=== PATIENT | female | born 1950 | race Caucasian/White ===

== ENCOUNTER 2019-01-02 14:03 | Day surgery (SDC) | payer OTHER, SELFPAY ==
[2018-12-30 07:51] VITALS: BMI 29.0
[2019-01-02] VITALS (17 sets, daily range): BP systolic 126–188; BP diastolic 76–122; PULSE 66–100; RESP 8–18; TEMP 35.9–36.9; O2SAT 94–100; BMI 29.0
[2019-01-02] MEDS: LACTATED RINGERS 1,000 ML 42 ML IV (14:50)
--- NOTE | 2019-01-02 16:17 | PM.PREOP ---
Pre-operative Note Interval Note History & Physical reviewed/Exam performed by Physician: Yes Changes to H&P: No
--- NOTE | 2019-01-02 16:34 | SUR.OPER ---
Lithotomy on padded OR bed, head on pillow, arms secured on padded arm boards at <90 degrees abduction. Legs secured in padded yellow fins stirrups.
[2019-01-02] MEDS: CEFAZOLIN 2 GM/100 ML FROZ.PIGGY IV (17:00)
[2019-01-02] MEDS: BUPIVACAINE 0.5% W/ EPI (PF) VIAL 30 ML INJ (17:24)
--- NOTE | 2019-01-02 18:47 | PM.OP.1 ---
Operative Date/Time/Diagnoses Date of procedure: 01/02/19 Time of procedure: 18:47 Pre-op diagnosis: Symptomatic uterovaginal prolapse Post-op diagnosis: same Procedure & Clinicians Procedure: Anterior and posterior repair with sacrospinous ligament fixation and TVT exact retropubic suburethral sling Same procedure as scheduled: Yes Indications: Symptomatic uterovaginal prolapse with urinary incontinence Surgeon: Malini Ruggiero Click Yes if Unassisted: Yes Anesthesia Type: General Operative Notes Findings: Cystocele with hypermobile urethra, rectocele, minimal uterine prolapse Closure Type: primary Specimen(s): none sent Prosthetic devices, grafts, tissues, transplants, or devices: TVT exact retropubic suburethral sling mesh Applied: catheter and other (Vaginal packing) Estimated Blood Loss (mL): 50 Blood products transfused: none Procedure in detail: Patient was brought to the operating room where she was placed in yellowfin stirrups and prepped and draped in the usual sterile fashion. A 20 point check system was reviewed prior to the beginning of the case. Pulsatile stockings were in place and functional throughout the case. Warming was in place. 2 g of Ancef were in prior to beginning of the case. A dilute solution of 1% lidocaine with epinephrine was injected over the cystocele. An incision was made over the cystocele and the incision dissected laterally. A pursestring suture was used to decrease the caliber of the cystocele with 2-0 Vicryl suture. Plicating sutures were made over the cystocele. A small amount of the vaginal excessive tissue was removed with scissors. The incision was closed with 2-0 Vicryl suture. The area over the rectocele was injected with a dilute solution of 1% lidocaine with epinephrine. An incision was made over the rectocele and enterocele with the scalpel. The dissection was undertaken laterally. Prolene suture with the Capio passer was placed through the uterosacral ligament on the right side and sutured to the underside of the cervix. 0 Vicryl suture was used to plicate over the rectocele. A finger was placed in the rectum to be sure there were no sutures placed through the rectal mucosa. The vaginal incision was closed with 2-0 Vicryl suture. 15 mL of half percent Marcaine with epinephrine were diluted with 70 mL of saline 10 cc was injected around the mid urethra. An incision was made over the mid urethra with a scalpel. The incision was extended laterally. A Pereyra catheter was placed with a catheter guide in place. The suprapubic exit sites were marked with a marking pen. The needles attached to the sling were placed from the bottom up and left in place. The catheter was removed and 300 mL of saline were placed in the bladder and cystoscopy was performed. On the right side the needle was seen to have grazed the mucosa of the bladder and was removed and replaced. A 30?? scope followed by a 0?? scope were used to look at the bladder and the urethra was no damage apparent with placement of the needles. Both ureters were seen to be functional. The graft was brought up loosely under the mid urethra. With sharp pressure against the bladder there was some leakage of urine. The plastic sheath was removed. The graft was cut under the skin of the suprapubic sites. Skin was closed with Steri-Strips. The vaginal incision was closed with 2-0 vicryl suture. Patient went to recovery room in good condition. Counts of instruments and sponges were correct. Vaginal packing was placed in the vagina and the Pereyra left in place. Complications: none Post-operative Condition: stable Disposition: Acute Care Plan for aftercare: Vaginal packing in for overnight than removal
[2019-01-02] MEDS: MEPERIDINE 100 MG/ML INJ 25 MG IV (19:00)
--- NOTE | 2019-01-02 19:00 | SUR.PHASEI ---
medicated for post op shivers
[2019-01-02] MEDS: fentaNYL 100 MCG/2 ML INJ 50 MCG IV (19:10)
[2019-01-02] MEDS: LACTATED RINGERS 1,000 ML 100 ML IV (20:21)
[2019-01-02] MEDS: DOCUSATE 250 MG CAPSULE PO (20:42)
--- NOTE | 2019-01-03 03:40 | PC.NURSE ---
Pt VSS, Lung sounds clear. Pt denies pain or nausea. Pt's wounds are clean/dry and intact w/ dermabond. No s/s of infection. Pt is on LR @ 100. Pt has call light within reach and SCD's applied.
[2019-01-03] MEDS: KETOROLAC 30 MG/ML VIAL IV (05:12)
[2019-01-03 06:23] VITALS: BP 119/71; PULSE 87; RESP 16; TEMP 36.2; O2SAT 96
[2019-01-03 08:00] VITALS: BP 141/68; PULSE 85; RESP 16; TEMP 36.4; O2SAT 95
[2019-01-03] MEDS: THYROID, PORK 60 MG TABLET 180 MG PO (08:33)
[2019-01-03] MEDS: DOCUSATE 250 MG CAPSULE PO (08:33)
--- NOTE | 2019-01-03 08:37 | PC.NURSE ---
Addendum entered by Lou Mckoen R.N. 01/03/19 11:55: DC - when friend arrived, belongings gathered, including cell phone, director [employer], tablet, ear buds, glasses, clothing, quach, reviewed info, paperwork provided, including catheter care, extra supplies, saline lock dc'd, tsf to and clinical neuropsychologist escorted to friend's car. Addendum entered by Lou Mckeon R.N. 01/03/19 10:19: /WAFER FABRICATOR - Dr. Ruggiero removed vag packing, moderate serosang on pad and changed before dc, instructions for changing rossi to leg bag provided and demonstrated placement of the leg bag, rossi and cath care, provided photo machine operator and alcohol wipes for care of catheter, extra rossi leg strap provided. Addendum entered by Lou Mckeon R.N. 01/03/19 09:55: - leg bag teaching provided as pt will dc home w/rossi/leg back until office fu. Original Note: AM NOTE - pt is alert, states earlier toradol relieved headache and incisional discomfort 2 on scale 0/10, discussed medications and declines any narcotic at this time, no nausea, + bt, passing flatus, abd tender, mildly distended, bonded incisions w/o redness or drainage, peripad w/serosang drainage, no clotting noted, replaced,.
--- NOTE | 2019-01-03 09:24 | P.DS_ITS ---
History of Present Illness History of Present Illness Date Patient Seen: 01/03/19 Time Patient Seen: 09:24 Chief complaint: *OPB* [id number] Narrative: Patient underwent anterior-posterior repair with sacrospinous ligament fixation and TVT retropubic suburethral sling. Patient had a needle pass through her bladder so will need to wear a Pereyra catheter for 1 week Discharge Providers Provider Discharge Date: 01/03/19 Primary care physician: Malini Ruggiero MD Discharge provider: Malini Ruggiero MD Summary Hospital Course Discharge Diagnosis: Symptomatic uterovaginal prolapse with stress urinary incontinence Hospital Course: Patient underwent a anterior posterior repair with sacrospinous ligament fixation and TVT retropubic suburethral sling Status at Discharge Cognitive/behavioral status at discharge: oriented Functional status at discharge: independent ambulation Overall status at discharge: patient is progressing back to baseline Time Spent with Patient Time spent: Less than 30 minutes Exam Vital Signs (past 8 hours): - 01/03/19 06:23 01/03/19 08:00 Temperature 97.2 F L 97.5 F L Pulse Rate 87 85 Respiratory Rate 16 16 Blood Pressure 119/71 141/68 H Pulse Oximetry 96 95 Oxygen Delivery Method Room Air Oxygen Flow Rate 0 Narrative Exam Narrative: Abdomen is soft, nontender. Vaginal packing removed. Suprapubic sites are clean dry and intact. Extremities without edema and nontend er Discharge Plan Discharge Plan Patient Disposition: Home Discharge Med Rec/Prescriptions Prescriptions: Continued thyroid (pork) 180 mg tablet 180 mg PO DAILY RF: 0 hydrocodone-acetaminophen 5-325 mg tablet 2 tab PO Q4-6H PRN (Reason: pain) Qty: 30 RF: 0 Follow up/Referrals: Malini Ruggiero MD [Primary Care Provider] - (Wednesday nurse visit to remove Pereyra and check postvoid visit) Discharge Orders: Discharge (Order); Ordered 01/03/19 Ordered By: Malini Ruggiero Provider Discharge Instructions Diet: Regular Activity: Nothing in vagina or lift over 20 lb for 6 weeks Catheter: 2-way Pereyra Catheter comment: teach patient Pereyra care and leg bag Skin/Wound/Dressing Care Report to your healthcare provider any signs of infection, such as:: chills, fever and increased pain Visit Report/Discharge Packet Stand Alone Forms: Surgery Discharge Discharge Data Primary Care Provider: Malini Ruggiero Attending Provider: Malini Ruggiero Quality VTE Deep Vein Thrombosis/Pulmonary Embolism Present on Admission: No
--- NOTE | 2019-01-03 13:28 | CM.DANOTE ---
DCP/Assessment: Reviewed chart. Patient is a 68yr old female admitted under [facility] for uterovaginal prolapse repair performed by Dr. Ruggiero on 01-02-19. No PCP listed. Primary payor is 1)[employer]. Attempted to meet with patient this AM to assess d/c planning needs. Patient had already discharged from [facility]. Spoke with RN whom reports patient I in ADL's and their were no d/c planning needs. P: Home today. MADELINE Espino Discharge Planning/Care Management CM Discharge Assessment Start: 01/03/19 13:25 Freq: Status: Active Protocol: Document 01/03/19 13:25 KJS (Rec: 01/03/19 13:27 KJS [id number]) Discharge Planning Assessment Assigned Continuous Crusher Operator MADELINE Espino Advance Directives? No History Provided By Patient,Medical Record Prior Living Arrangements House Household Members none Type of transporation used prior to Drives own vehicle admit Independent with ADL's Yes Is patient alert and oriented? Yes Caregiver for Another No Barriers to Discharge No Discharge Plan Home Transportation Arrangement Family/friend to provide transport. Referrals Initiated None needed Review Status In Process Next Review Type Continued Stay Review Pre-Anesthesia Assessment Start: 12/30/18 07:51 Freq: Status: Discharge Protocol: Document 12/30/18 07:51 CAB (Rec: 12/30/18 07:57 CAB [id number]) Pre-Anesthesia Assessment Patient Information Reviewed Via Chart Review Seen Specialist in Last 12 Months Yes Specialist Seen Septic Tank Servicer Primary Language Chinese Building Insulation Installer Required No Height 173.99 cm Weight 87.997 kg Body Mass Index (BMI) 29.0 Barriers to Learning None Anesthesia Review Requested No Asbestos Abatement Technician No Smoking Status Never smoker Patient is completely paralyzed or No completely immobile Can You Climb a Flight of Stairs Without No: Pt feels r/t lack of SOB exercise (Noted in Surgeon's visit 03/16/18) Anti-Coagulant Therapy No Hx Pacemaker/ICD No Pacemaker Rep Required? No Bladder Pattern Incontinent Urinary Catheter Present No Hx Urinary Self Catheterization No Diabetes No Patient No Lactating No Patient Discharge Plan Description Return Home
== END 2019-01-03 11:58 | disposition home or self-care (01) ==
LOC: OR 14:05 → AC 19:48
PROVIDERS: Family Provider Specialist; PCP Specialist; Visit Provider Specialist
PROC: (CPT 57282; principal; 2019-01-02 15:00)
PROC: 0TSD0ZZ Reposition Urethra, Open Approach (ICD-10-PCS; CPT 57282; 2019-01-02 15:00)
DX: N81.2 Incomplete uterovaginal prolapse (principal); R32 Unspecified urinary incontinence
CPT/HCPCS: 57282; 57288; 57260; C1771; J0690; J1100; J1885; J2175; J2405; J2704; J3010

== ENCOUNTER → 2020-07-01 08:24 | Outpatient (CLI) | payer MEDICARE, SELFPAY ==
[2019-01-02 19:51] VITALS: BMI 29.0
[2020-07-01 08:49] LABS: Hematocrit 38.7 % (36-46); Mean Corpuscular HGB Conc 33.6 % (30-36); Mean Corpuscular Hemoglobin 29.5 PG (26-34); Mean Corpuscular Volume 87.7 fL (80-100); Platelet Count 249 X10^3/uL (150-400); Red Blood Cell Count 4.42 X10^6/uL (4.0-5.2); Red Cell Distribution Width 13.5 % (11.6-14.8); White Blood Cell Count 5.5 X10^3/uL (4.5-11.0)
[2020-07-01 09:00] LABS: Hemoglobin A1C% w Est Avg Glu 5.4 % (4.0-6.0)
[2020-07-01 09:18] LABS: Alanine Aminotransferase 22 IU/L (<35); Albumin Globulin Ratio 1.5 (1.0-2.8); Alkaline Phosphatase 87 U/L (38-126); Aspartate Aminotransferase 21 IU/L (14-36); BUN Creatinine Ratio 23.9 (6-22); Bilirubin Total 0.6 mg/dL (0.2-1.3); Blood Urea Nitrogen 16 mg/dL (7-17); Calcium 9.8 mg/dL (8.4-10.2); Carbon Dioxide 28 mmol/L (22-32); Chloride 107 mmol/L (98-107); Cholesterol 243 mg/dL (140-199); Estimated Glomerular Filt Rate > 60.0 mL/min (>60); Globulin 2.7 g/dL (1.7-4.1); Glucose 104 mg/dL (80-110); HDL Cholesterol 44 mg/dL (40-60); HEMOLYSIS < 15 (0-50); LDL Cholesterol Calculated 169 mg/dL (<100); Potassium 4.7 mmol/L (3.4-5.1); Sodium 140 mmol/L (137-145); Total Protein 6.7 g/dL (6.3-8.2); Triglycerides 152 mg/dL (35-150)
[2020-07-01 09:42] LABS: TSH w/ Reflex to FT4 < 0.02 uIU/mL (0.47-4.68)
[2020-07-01 10:38] LABS: Free T4, Direct Thyroxine 1.41 ng/dL (0.78-2.19)
== END ==
PROVIDERS: Family Provider Specialist; PCP Registered Nurse Diabetes Educator; Referring Provider Registered Nurse Diabetes Educator; Visit Provider Registered Nurse Diabetes Educator
DX: E03.9 Hypothyroidism, unspecified (principal); R73.01 Impaired fasting glucose; E78.5 Hyperlipidemia, unspecified
CPT/HCPCS: 36415; 80053; 80061; 83036; 84439; 84443; 85027

== ENCOUNTER → 2020-07-09 14:37 | Outpatient (CLI) | payer MEDICARE, SELFPAY ==
[2019-01-02 19:51] VITALS: BMI 29.0
--- NOTE | 2020-07-09 14:39 | DI.MG.S_ITS ---
BILATERAL DIGITAL SCREENING MAMMOGRAM 3D/2D WITH CAD: 07/09/2020 CLINICAL: Routine screening. Comparison is made to exams dated: 04/05/2019 mammogram, 04/09/2017 mammogram, and 10/11/2015 mammogram - [facility]. The tissue of both breasts is heterogeneously dense. This may lower the sensitivity of mammography. Current study was also evaluated with a Computer Aided Detection (CAD) system. No significant masses, calcifications, or other findings are seen in either breast. There has been no significant interval change. IMPRESSION: NEGATIVE There is no mammographic evidence of malignancy. A 1 year screening mammogram is recommended. This exam was interpreted at Station ID: [id number]. NOTE: For mammograms, a report in lay terms will be sent to the patient. Approximately 15% of breast malignancies will not be visualized mammographically. In the management of a palpable breast mass, a negative mammogram must not discourage biopsy of a clinically suspicious lesion. Electronically Signed By: Twan banks/fadi:07/09/2020 15:30:32 letter sent: Normal Exam ACR BI-RADS Category 1: Negative 3341F
== END ==
PROVIDERS: Family Provider Specialist; PCP Registered Nurse Diabetes Educator; Referring Provider Registered Nurse Diabetes Educator; Visit Provider Registered Nurse Diabetes Educator
DX: Z12.31 Encounter for screening mammogram for malignant neoplasm of breast (principal); Z78.0 Asymptomatic menopausal state; E03.9 Hypothyroidism, unspecified; E78.5 Hyperlipidemia, unspecified; R73.01 Impaired fasting glucose
CPT/HCPCS: 77063; 77067; 77080

== ENCOUNTER → 2020-07-25 09:12 | Outpatient (CLI) | payer MEDICARE, SELFPAY ==
[2019-01-02 19:51] VITALS: BMI 29.0
[2020-07-25 17:33] LABS: Free T3, Triiodothyronine Free 8.75 pg/mL (2.77-5.27); Free T4, Direct Thyroxine 1.42 ng/dL (0.78-2.19)
[2020-07-25 18:35] LABS: Thyroid Stimulating Hormone < 0.015 uIU/mL (0.47-4.68)
== END ==
PROVIDERS: Family Provider Specialist; PCP Registered Nurse Diabetes Educator; Referring Provider Registered Nurse Diabetes Educator; Visit Provider Registered Nurse Diabetes Educator
DX: E03.9 Hypothyroidism, unspecified (principal)
CPT/HCPCS: 36415; 84439; 84443; 84481

== ENCOUNTER → 2020-09-20 09:55 | Outpatient (CLI) | payer MEDICARE, SELFPAY ==
[2019-01-02 19:51] VITALS: BMI 29.0
[2020-09-20 12:28] LABS: Free T3, Triiodothyronine Free 3.52 pg/mL (2.77-5.27); Free T4, Direct Thyroxine 0.64 ng/dL (0.78-2.19)
[2020-09-20 12:41] LABS: Thyroid Stimulating Hormone 4.08 uIU/mL (0.47-4.68)
== END ==
PROVIDERS: Family Provider Specialist; PCP Registered Nurse Diabetes Educator; Referring Provider Registered Nurse Diabetes Educator; Visit Provider Registered Nurse Diabetes Educator
DX: E03.9 Hypothyroidism, unspecified (principal)
CPT/HCPCS: 36415; 84439; 84443; 84481

== ENCOUNTER → 2021-01-13 12:41 | Outpatient (CLI) | payer MEDICARE, SELFPAY ==
[2019-01-02 19:51] VITALS: BMI 29.0
[2021-01-13 13:50] LABS: Cholesterol 286 mg/dL (140-199); Glucose 98 mg/dL (80-110); HDL Cholesterol 60 mg/dL (40-60); LDL Cholesterol Calculated 202 mg/dL (<100); Triglycerides 118 mg/dL (35-150)
[2021-01-13 14:20] LABS: TSH w/ Reflex to FT4 1.36 uIU/mL (0.47-4.68)
[2021-01-30 13:48] LABS: SARS-CoV-2 Antibody Titer >2500.0
== END ==
PROVIDERS: Family Provider Specialist; PCP Registered Nurse Diabetes Educator; Referring Provider Registered Nurse Diabetes Educator; Visit Provider Registered Nurse Diabetes Educator
DX: E03.9 Hypothyroidism, unspecified (principal); R73.01 Impaired fasting glucose; E78.5 Hyperlipidemia, unspecified; Z20.822 Contact with and (suspected) exposure to COVID-19
CPT/HCPCS: 36415; 80061; 82947; 84443; 86769

== ENCOUNTER → 2021-08-28 10:55 | Outpatient (CLI) | payer MEDICARE, SELFPAY ==
[2019-01-02 19:51] VITALS: BMI 29.0
--- NOTE | 2021-08-28 10:56 | DI.MG.S_ITS ---
BILATERAL DIGITAL SCREENING MAMMOGRAM 3D/2D WITH CAD: 08/28/2021 CLINICAL: Routine screening. Comparison is made to exams dated: 07/09/2020 mammogram - [facility] and 04/05/2019 mammogram - [facility]. There are scattered fibroglandular elements in both breasts. Current study was also evaluated with a Computer Aided Detection (CAD) system. No significant masses, calcifications, or other findings are seen in either breast. There has been no significant interval change. IMPRESSION: NEGATIVE There is no mammographic evidence of malignancy. A 1 year screening mammogram is recommended. This exam was interpreted at Station ID: [id number]. NOTE: For mammograms, a report in lay terms will be sent to the patient. Approximately 15% of breast malignancies will not be visualized mammographically. In the management of a palpable breast mass, a negative mammogram must not discourage biopsy of a clinically suspicious lesion. Electronically Signed By: Deejay dan/fadi:08/28/2021 12:33:35 letter sent: Normal Exam ACR BI-RADS Category 1: Negative 3341F
== END ==
PROVIDERS: Family Provider Specialist; PCP Registered Nurse Diabetes Educator; Referring Provider Registered Nurse Diabetes Educator; Visit Provider Registered Nurse Diabetes Educator
DX: Z12.31 Encounter for screening mammogram for malignant neoplasm of breast (principal)
CPT/HCPCS: 77063; 77067

== ENCOUNTER → 2021-12-31 11:15 | Outpatient (CLI) | payer MEDICARE, SELFPAY ==
[2019-01-02 19:51] VITALS: BMI 29.0
[2021-12-31 11:50] LABS: Hematocrit 40.7 % (36-46); Hemoglobin 13.4 g/dL (12.0-16.0); Mean Corpuscular Hemoglobin 29.5 PG (26-34); Mean Corpuscular Volume 89.3 fL (80-100); Platelet Count 262 X10^3/uL (150-400); Red Blood Cell Count 4.56 X10^6/uL (4.0-5.2); Red Cell Distribution Width 13.5 % (11.6-14.8); White Blood Cell Count 7.5 X10^3/uL (4.5-11.0)
[2021-12-31 13:30] LABS: Alanine Aminotransferase 16 IU/L (<35); Albumin 4.2 g/dL (3.5-5.0); Albumin Globulin Ratio 1.2 (1.0-2.8); Alkaline Phosphatase 85 U/L (38-126); Aspartate Aminotransferase 19 IU/L (14-36); BUN Creatinine Ratio 26.7 (6-22); Bilirubin Total 0.7 mg/dL (0.2-1.3); Blood Urea Nitrogen 20 mg/dL (7-17); Calcium 9.1 mg/dL (8.4-10.2); Carbon Dioxide 26 mmol/L (22-32); Chloride 105 mmol/L (98-107); Cholesterol 267 mg/dL (140-199); Estimated Glomerular Filt Rate > 60 mL/min (>60); Globulin 3.5 g/dL (1.7-4.1); Glucose 98 mg/dL (80-110); HDL Cholesterol 47 mg/dL (40-60); HEMOLYSIS < 15 (0-50); LDL Cholesterol Calculated 192 mg/dL (<100); Potassium 4.2 mmol/L (3.4-5.1); Sodium 141 mmol/L (137-145); Total Protein 7.7 g/dL (6.3-8.2); Triglycerides 142 mg/dL (35-150)
[2021-12-31 15:19] LABS: TSH w/ Reflex to FT4 0.72 uIU/mL (0.47-4.68)
== END ==
PROVIDERS: Family Provider Specialist; PCP Registered Nurse Diabetes Educator; Referring Provider Registered Nurse Diabetes Educator; Visit Provider Registered Nurse Diabetes Educator
DX: E03.9 Hypothyroidism, unspecified (principal); E78.5 Hyperlipidemia, unspecified; R73.01 Impaired fasting glucose
CPT/HCPCS: 36415; 80053; 80061; 84443; 85027

== ENCOUNTER → 2022-07-02 13:31 | Outpatient (CLI) | payer MEDICARE, SELFPAY ==
[2019-01-02 19:51] VITALS: BMI 29.0
[2022-07-02 15:58] LABS: Cholesterol 291 mg/dL (140-199); HDL Cholesterol 66 mg/dL (40-60); LDL Cholesterol Calculated 205 mg/dL (<100); Triglycerides 101 mg/dL (35-150)
[2022-07-02 16:34] LABS: TSH w/ Reflex to FT4 0.76 uIU/mL (0.47-4.68)
== END ==
PROVIDERS: Family Provider Specialist; PCP Registered Nurse Diabetes Educator; Referring Provider Registered Nurse Diabetes Educator; Visit Provider Registered Nurse Diabetes Educator
DX: E78.5 Hyperlipidemia, unspecified (principal); E03.9 Hypothyroidism, unspecified
CPT/HCPCS: 36415; 80061; 84443

== ENCOUNTER → 2022-09-03 09:54 | Outpatient (CLI) | payer MEDICARE, SELFPAY ==
[2019-01-02 19:51] VITALS: BMI 29.0
--- NOTE | 2022-09-03 | DI.MG.S_ITS ---
BILATERAL DIGITAL SCREENING MAMMOGRAM 3D/2D WITH CAD: 09/03/2022 CLINICAL: Routine screening. Comparison is made to exams dated: 08/28/2021 mammogram, 07/09/2020 mammogram - [facility], and 04/05/2019 mammogram - [facility]. Both breasts are heterogeneously dense, which may obscure small masses (category c / 51-75% glandular tissue). Current study was also evaluated with a Computer Aided Detection (CAD) system. No significant masses, calcifications, or other findings are seen in either breast. There has been no significant interval change. IMPRESSION: NEGATIVE There is no mammographic evidence of malignancy. A 1 year screening mammogram is recommended. Based on the Tyrer Cuzick model (a risk assessment model) the patient's lifetime risk is 5.9% and her 10 year risk is 4.1%. According to the ACR, ACS, and NCCN guidelines, an annual breast MRI exam along with mammogram is recommended if the patient's lifetime risk is 20% or greater. This exam was interpreted at Station ID: [id number]. NOTE: For mammograms, a report in lay terms will be sent to the patient. Approximately 15% of breast malignancies will not be visualized mammographically. In the management of a palpable breast mass, a negative mammogram must not discourage biopsy of a clinically suspicious lesion. Electronically Signed By: Igor moran/fadi:09/03/2022 13:05:50 letter sent: Normal Exam ACR BI-RADS Category 1: Negative 3341F
== END ==
PROVIDERS: Family Provider Specialist; PCP Registered Nurse Diabetes Educator; Referring Provider Registered Nurse Diabetes Educator; Visit Provider Registered Nurse Diabetes Educator
DX: Z12.31 Encounter for screening mammogram for malignant neoplasm of breast (principal)
CPT/HCPCS: 77063; 77067

== ENCOUNTER → 2022-10-27 10:40 | Outpatient (CLI) | payer MEDICARE, SELFPAY ==
[2019-01-02 19:51] VITALS: BMI 29.0
--- NOTE | 2022-10-27 10:41 | DI.RAD.S_ITS ---
PROCEDURE: XR HIP W PEL IF DONE LT 2V INDICATIONS: eval L hip pain TECHNIQUE: AP pelvis with lateral view of the left hip. COMPARISON: None. FINDINGS: Bones: No fractures or dislocations. Pelvic ring appears intact. No suspicious bony lesions. Mild degenerative changes in the hips bilaterally. Degenerative changes are seen at the lumbosacral junction and the pubic symphysis. Soft tissues: The visualized bowel gas pattern is normal. No suspicious soft tissue calcifications. IMPRESSION: Mild degenerative changes in the hips bilaterally. Degenerative changes also seen in the pubic symphysis and included lumbar spine. No acute osseous abnormality. Approved by: Igor Martinez M.D. on 10/27/2022 at 12:45
== END ==
PROVIDERS: Family Provider Specialist; PCP Registered Nurse Diabetes Educator; Referring Provider Family Medicine; Visit Provider Family Medicine
DX: M25.552 Pain in left hip (principal)
CPT/HCPCS: 73502

== ENCOUNTER → 2023-04-20 10:05 | Outpatient (CLI) | payer OTHER, SELFPAY ==
[2019-01-02 19:51] VITALS: BMI 29.0
--- NOTE | 2023-04-20 10:06 | DI.RAD.S_ITS ---
PROCEDURE: XR CERVICAL SPINE 4V OR 5V INDICATIONS: eval Right shoulder pain and cervical radiculopathy TECHNIQUE: 5 views of the cervical spine acquired. COMPARISON: None. FINDINGS: Bones: Degenerative disc space narrowing hypertrophic facet joints noted throughout the exam. Normal bone mineralization, vertebral body height, alignment and craniovertebral relationships. Prevertebral soft tissue unremarkable. Paragraphs oblique images show no significant foraminal stenosis, although evaluation of the left lower foramina are limited patient positioning Soft tissues: No prevertebral soft tissue swelling. IMPRESSION: Degenerative disc disease and arthropathy without radiographic evidence of osseous foraminal stenosis Approved by: Dean Peters M.D. on 04/20/2023 at 15:47
--- NOTE | 2023-04-20 10:06 | DI.RAD.S_ITS ---
PROCEDURE: XR SHOULDER RT MIN 2V INDICATIONS: eval Right shoulder pain and cervical radiculopathy TECHNIQUE: 3 views of the shoulder were acquired. COMPARISON: None. FINDINGS: Bones: No fractures or dislocations. No suspicious bony lesions. Visualized ribs appear intact. Soft tissues: No suspicious soft tissue calcifications. IMPRESSION: No acute bony abnormality. Approved by: Dean Peters M.D. on 04/20/2023 at 15:49
== END ==
PROVIDERS: Family Provider Specialist; PCP Registered Nurse Diabetes Educator; Referring Provider Registered Nurse Diabetes Educator; Visit Provider Registered Nurse Diabetes Educator
DX: M47.22 Other spondylosis with radiculopathy, cervical region (principal); M50.10 Cervical disc disorder with radiculopathy, unspecified cervical region; M25.511 Pain in right shoulder
CPT/HCPCS: 72050; 73030

== ENCOUNTER → 2023-06-18 07:20 | Outpatient (CLI) | payer MEDICARE, SELFPAY ==
[2019-01-02 19:51] VITALS: BMI 29.0
[2023-06-18 07:52] LABS: Hematocrit 40.3 % (36-46); Hemoglobin 13.3 g/dL (12.0-16.0); Mean Corpuscular Hemoglobin 29.6 PG (26-34); Mean Corpuscular Volume 89.5 fL (80-100); Platelet Count 284 X10^3/uL (150-400); Red Cell Distribution Width 13.5 % (11.6-14.8); White Blood Cell Count 7.5 X10^3/uL (4.5-11.0)
[2023-06-18 08:03] LABS: Hemoglobin A1C% w Est Avg Glu 5.5 % (4.0-6.0)
[2023-06-18 08:18] LABS: Alanine Aminotransferase 20 IU/L (<35); Albumin 4.2 g/dL (3.5-5.0); Albumin Globulin Ratio 1.2 (1.0-2.8); Alkaline Phosphatase 73 U/L (38-126); Aspartate Aminotransferase 21 IU/L (14-36); BUN Creatinine Ratio 29.1 (6-22); Bilirubin Total 0.9 mg/dL (0.2-1.3); Blood Urea Nitrogen 23 mg/dL (7-17); Calcium 9.4 mg/dL (8.4-10.2); Carbon Dioxide 27 mmol/L (22-32); Chloride 107 mmol/L (98-107); Cholesterol 293 mg/dL (140-199); Estimated Glomerular Filt Rate > 60 mL/min (>60); Globulin 3.4 g/dL (1.7-4.1); Glucose 99 mg/dL (80-110); HDL Cholesterol 53 mg/dL (40-60); HEMOLYSIS < 15 (0-50); LDL Cholesterol Calculated 213 mg/dL (<100); Potassium 4.6 mmol/L (3.4-5.1); Sodium 139 mmol/L (137-145); Total Protein 7.6 g/dL (6.3-8.2); Triglycerides 137 mg/dL (35-150)
[2023-06-18 09:06] LABS: Free T3, Triiodothyronine Free 3.73 pg/mL (2.77-5.27); Free T4, Direct Thyroxine 1.64 ng/dL (0.78-2.19)
[2023-06-18 09:20] LABS: Thyroid Stimulating Hormone 0.525 uIU/mL (0.47-4.68)
== END ==
PROVIDERS: Family Provider Specialist; PCP Registered Nurse Diabetes Educator; Referring Provider Registered Nurse Diabetes Educator; Visit Provider Registered Nurse Diabetes Educator
DX: E03.9 Hypothyroidism, unspecified (principal); R73.01 Impaired fasting glucose; E78.5 Hyperlipidemia, unspecified; R53.83 Other fatigue
CPT/HCPCS: 80053; 80061; 83036; 84439; 84443; 84481; 85027

== ENCOUNTER → 2023-08-10 14:48 | Outpatient (CLI) | payer MEDICARE, SELFPAY ==
[2019-01-02 19:51] VITALS: BMI 29.0
--- NOTE | 2023-08-10 14:49 | DI.RAD.S_ITS ---
PROCEDURE: XR DEXA AXIAL SKELETON INDICATIONS: routine screening COMPARISON: [facility], CR, XR DEXA AXIAL SKELETON, 07/09/2020, 15:14. FINDINGS: Lumbar Spine: Bone mineral density is 0.878 g/cm2, T score -1.5. Prior DEXA was performed using dissimilar scan type or analysis method. Left Hip: Bone mineral density 0.840 g/cm2, T score -0.8. Prior DEXA was performed using dissimilar scan type or analysis method. Left Femoral Neck: Bone mineral density 0.707 g/cm2, T score -1.3. Right Hip: Bone mineral density is 0.859 g/cm2, T score -0.7. Prior DEXA was performed using dissimilar scan type or analysis method. Right Femoral Neck: Bone mineral density 0.768 g/cm2, T score -0.7. Fracture Risk Calculation (when applicable): 10-year fracture risk of a major osteoporotic fracture 10 % and of a hip fracture 1.5 %, assuming no prior osteoporotic fracture. (T score greater or equal to -1.0 to: NORMAL) (T score from -1.1 to -2.4: OSTEOPENIA) (T score less than or equal to -2.5: OSTEOPOROSIS) IMPRESSION: 1. By WHO criteria, patient has osteopenia. 2. 10-year fracture risk of a major osteoporotic fracture 10% and of a hip fracture 1.5%. Follow-up guidelines as follows: Osteoporosis: Consider a repeat DEXA and Vertebral Fracture Assessment (VFA) exam in 2 years or sooner if medically necessary, to reassess this patient's status. Osteopenia: Consider a repeat DEXA in 2-3 years to reassess this patient's status, or if there is a new clinical indication. Normal: Consider a repeat DEXA in 5 years or sooner, or if there is a new clinical indication. All treatment decisions require clinical judgment and consideration of individual patient factors, including patient preferences, comorbidities, previous drug use, risk factors not captured in the FRAX model (e.g., frailty, falls, vitamin D deficiency, increased bone turnover, interval significant decline in bone density ) and possible under- or over-estimation of fracture risk by FRAX. In addition, the NOF Guide recommends that FDA-approved medical therapies be considered in postmenopausal women and men age >= 50 years with a: * Hip or vertebral (clinical or morphometric) fracture * T-score of <=-2.5 at the spine or hip * Ten-year fracture probability by FRAX of >= 3% for hip fracture or >=20% for major osteoporotic fracture. People with diagnosed cases of osteoporosis or at high risk for fracture should have regular bone mineral density tests. For patients eligible for Medicare, routine testing is allowed once every 2 years. The testing frequency can be increased to one year for patients who have rapidly progressing disease, those who are receiving or discontinuing medical therapy to restore bone mass, or have additional risk factors. Approved by: Igor Martinez M.D. on 08/10/2023 at 22:31
== END ==
PROVIDERS: Family Provider Specialist; PCP Registered Nurse Diabetes Educator; Referring Provider Student in an Organized Health Care Education/Training Program; Visit Provider Student in an Organized Health Care Education/Training Program
DX: Z13.820 Encounter for screening for osteoporosis (principal); Z78.0 Asymptomatic menopausal state; M85.89 Other specified disorders of bone density and structure, multiple sites
CPT/HCPCS: 77080

== ENCOUNTER → 2023-10-19 15:19 | Outpatient (CLI) | payer MEDICARE, SELFPAY ==
[2019-01-02 19:51] VITALS: BMI 29.0
--- NOTE | 2023-10-19 15:20 | DI.MG.S_ITS ---
BILATERAL DIGITAL SCREENING MAMMOGRAM 3D/2D WITH CAD: 10/19/2023 CLINICAL: Routine screening. Comparison is made to exams dated: 09/03/2022 mammogram, 08/28/2021 mammogram, and 07/09/2020 mammogram - [facility]. Both breasts are heterogeneously dense, which may obscure small masses (category c / 51-75% glandular tissue). Current study was also evaluated with a Computer Aided Detection (CAD) system. No significant masses, calcifications, or other findings are seen in either breast. There has been no significant interval change. IMPRESSION: NEGATIVE There is no mammographic evidence of malignancy. A 1 year screening mammogram is recommended. Based on the Tyrer Cuzick model (a risk assessment model) the patient's lifetime risk is 5.6% and her 10 year risk is 4.2%. According to the ACR, ACS, and NCCN guidelines, an annual breast MRI exam along with mammogram is recommended if the patient's lifetime risk is 20% or greater. This exam was interpreted at Station ID: [id number]. NOTE: For mammograms, a report in lay terms will be sent to the patient. Approximately 15% of breast malignancies will not be visualized mammographically. In the management of a palpable breast mass, a negative mammogram must not discourage biopsy of a clinically suspicious lesion. Electronically Signed By: Guru gresham/fadi:10/19/2023 21:25:36 letter sent: Normal Exam ACR BI-RADS Category 1: Negative 3341F
== END ==
PROVIDERS: Family Provider Specialist; PCP Registered Nurse Diabetes Educator; Referring Provider Registered Nurse Diabetes Educator; Visit Provider Registered Nurse Diabetes Educator
DX: Z12.31 Encounter for screening mammogram for malignant neoplasm of breast (principal); R92.333 Mammographic heterogeneous density, bilateral breasts
CPT/HCPCS: 77063; 77067

== ENCOUNTER 2024-02-15 09:00 | Outpatient (RCR) | payer MEDICARE, SELFPAY ==
[2019-01-02 19:51] VITALS: BMI 29.0
--- NOTE | 2024-01-20 11:21 | PT.OIE ---
Current Diagnoses Muscle weakness (generalized) (01/20/24) Pelvic muscle wasting (01/20/24) Female genital prolapse, unspecified (01/20/24) Unspecified urinary incontinence (01/20/24) Personal history of other diseases of urinary system (01/20/24) Other specified postprocedural states (01/20/24) Past Medical History (Last Updated 11/26/23 @ 09:00 by TIA Atkins) Cystocele and rectocele with incomplete uterovaginal prolapse Dyslipidemia Essential hypertension Fecal incontinence (~2018) Greater trochanteric bursitis of left hip H/O fracture of ankle Herpes (~1986) Hip pain (~2017) Hypothyroid Hypothyroidism Impaired fasting blood sugar Skin cancer (~2002) Urinary incontinence concurrent with and due to female genital prolapse (~2018) Vision disorder Past Surgical History (Last Reviewed 11/26/23 @ 08:58 by TIA Atkins) Anesthesia History of bladder suspension procedure (~12/2018) History of colonoscopy History of foot surgery (~2007) S/P repair of PDA Status post delivery (~1986) Status post Mohs surgery Visit Care Team Role Provider Type Malini Solo MD Family Provider Physician Specialty: CIRCUIT DESIGN ENGINEER Address: [address] [place] [address] Email: [email or web address] TIA Atkins Attending Provider Advanced Police Shift Commander Primary Care Provider Referring Provider Specialty: Medical Address: [address] [place] [address] Email: [email or web address] Physical Therapy Initial Evaluation PT-OP-A Visit Information Start: 01/20/24 08:59 Freq: Status: Active Protocol: Document 01/20/24 08:59 [facility] (Rec: 01/20/24 09:30 [facility] [id number]) Out-Patient Physical Therapy Visit Information Visit Information Visit Type Initial Evaluation Visit Start Time 09:00 Visit Stop Time 09:45 Visit Number 1 Evaluation Information Evaluation Date 01/20/24 PT-OP-B Current Condition Start: 01/20/24 08:59 Freq: Status: Active Protocol: Document 01/20/24 09:00 [facility] (Rec: 01/20/24 09:30 [facility] [id number]) Current Condition History of Current Condition Onset Date 2018 Current Complaints urinary incontinence and at times fecal soilage History of Current Condition prolapse surgery [address] solo and that time she was having bowel leakeage and loose stool. She retired in 2019 and after she stopped working she sat more and this is when her symptoms increased . Over the last few years its been a pain in the neck as she has to have the mini pads or underware wing pads. She never leaks at night laying down. SHe has a history of 2 kids later in life. She notes she didn't have this problem until the last decade. As soon as she is upright from bed she has to go to the bathroom and she has to try hard to make it to the bathroom and she notes urine just comes out at this time. Or if she sits too long when she gets up she has difficulty making it to the bathroom. She does 2 cups of coffee in the am and then no more. then 2-3 glasses of water per day. She doesn't have good control of the rectal sphincter and doesn't know when she has a accident. She swims for exercises senior classes 2 xms per week. One time this year she did feel a prolapse. PT-OP-C Subjective Start: 01/20/24 08:59 Freq: Status: Active Protocol: Document 01/20/24 09:00 [facility] (Rec: 01/22/24 11:05 [facility] [id number]) Patient Questionnaires Pelvic Pain and Urgency/Frequency Patient Symptom Scale Pelvic Pain Score 3 PT-OP-F Manual Assessment Start: 01/20/24 08:59 Freq: Status: Active Protocol: Document 01/20/24 09:00 [facility] (Rec: 01/22/24 11:05 [facility] [id number]) Manual Assessments Soft Tissue Assessment Soft Tissue Mobility Assessment decreased muscle tone in the abdominal wall, atrophy of the levator ani all lorenzo PT-OP-I Pelvic Floor Start: 01/20/24 08:59 Freq: Status: Active Protocol: Document 01/20/24 09:00 [facility] (Rec: 01/22/24 11:00 [facility] [id number]) Pelvic Floor Assessment Urine Pelvic Floor Surgery Yes: anterior posterior repain Urinary Symptoms Urge Sensation Other Urinary Symptoms pt reports leakage happens if she has been sitting for a period of time and then tries to stand she often will leak when then trying to make it to the bathroom and can leak through her underwear and pants Leakage Size Large Leakage Cause Urge Voiding Frequency 3-6 Nocturia 0 Urine Pad Type Panty Liner Pelvic Clock Pelvic Clock 12-3 Atrophy Pelvic Clock 3-6 Atrophy Pelvic Clock 6-9 Atrophy Pelvic Clock 9-12 Atrophy Contraction Ability Voluntary Contraction Weak Voluntary Relaxation Weak Manual Muscle Testing Left 1 Manual Muscle Testing Right 2 Manual Muscle Testing Anterior 1 Manual Muscle Testing Posterior 2 Muscle Endurance (Seconds) 4 Comments Pelvic Floor Comments poor recruitment of the left lateral wall of the levator ani 1/5 MMT, all other lorenzo 2 /5 MMT poor pelvic floor endurance PT-OP-M Strength Start: 01/22/24 11:00 Freq: Status: Active Protocol: Document 01/20/24 09:00 [facility] (Rec: 01/22/24 11:01 [facility] [id number]) Trunk Strength Trunk Manual Muscle Testing Flexion 2+ Poor+ Core Stabilization poor transverse abdominal stability with decreased ability to facilitate the transverse abdominal musculature PT-OP-Q Treatments Start: 01/20/24 08:59 Freq: Status: Active Protocol: Document 01/20/24 09:00 [facility] (Rec: 01/22/24 11:05 [facility] [id number]) Therapeutic Exercises Supine Exercises pelvic floor facilitation Comments pt is educated on facilitation of the pelvic floor for HEP Self-Care/Home Management Treatment Education Patient Education Home Exercise Program Other Education tonya was educated on pelvic floor bracing prior to standing and a timed voiding schedule so that she isn't sitting past 3 hours without out standing and going to the bathroom PT-OP-T Assessment and Plan Start: 01/20/24 08:59 Freq: Status: Active Protocol: Document 01/20/24 09:00 [facility] (Rec: 01/22/24 11:05 [facility] [id number]) Physical Therapy Assessment Rehab Potential Rehabilitation Potential Good Evaluation Complexity Number of Personal Factors/Comorbidities 0 Number of Body Systems Impaired 1-2 Clinical Presentation at Evaluation Stable Impairments Impairments Activity Tolerance,Strength, Tone Other Impairments urinary leakage with urgency and that is worse after she has been sitting for a period of time Goals 3 Impairment Decreased pelvic floor endurance Short Term Goal (STG) Tonya is able to sustain a pelvic floor contraction in supine x 10 seconds STG Duration 5 weeks Senior Living Goal (LTG) Tonya is able to sustain a pelvic floor contraction in standing x 5 seconds LTG Duration 12 weeks 2 Impairment pelvic floor weakness Short Term Goal (STG) Tonya is educated on a pelvic floor strenghtening and core strengthening program for home STG Duration 4 weeks Senior Living Goal (LTG) Tonya is able to improve the strength of the levator ani to 3/5 MMT for all lorenzo LTG Duration 12 weeks 1 Impairment urinary incontinence worse after she has been sitting for a period of time Short Term Goal (STG) Tonya is educated on pelvic floor bracing prior to standing STG Duration 3 weeks Auto Wrecker Goal (LTG) Tonya reports a overall reduction in urinary leakge and is able to stand up from a chair without leakage LTG Duration 12 weeks Assessment Summary Assessment Tonya is a 73 year old female referred to PT for pelvic floor strengtheing due to urinary incontinence. She has a history of anterior posterior repair in 2012. She reports her symptoms of urinary leakage have been slowly progressing over the past 10 years. She also describes fecal soiling and feels with loose stool she has difficulty controling her bowels. Tonya reports since she has retired she has become much more sedintary and knows this contributes to her overall weakness. She is doing water exercise approx 2 times per week. Her leakage occurs primarily with a urge and after she has been sitting for a extended period of time . When she stands up from sitting she will feel a urge and is not able to make it to the bathroom on time. With examination today Tonya is weak throughout the abdominal wall and pelvic floor. She tests 1/5 for the anterior and left lorenzo of the levator ani and 2/5 MMT for posterior and right lorenzo. Her endurance to sustain a pelvic floor contraction is limited to a few seconds only. We discussed timed voiding today as Tonya reports she will sit at times longer than 3 hours reading and doing computer work. She was educated on getting up and moving at 2 hours and checking in on how her bladder feels at that time in standing. Tonya is a good candidate for PT and treatment will include pelvic floor strengthening, endurance training, core and hip stabilization exercises. Physical Therapy Plan Frequency and Duration Frequency of Treatment 1x/Week Duration of treatment (weeks) 12 Plan of Care Start Date 01/20/24 Plan of Care End Date 04/13/24 Therapeutic Interventions Therapeutic Interventions Home Exercise Program,Patient/ Caregiver Education,Self-Care/ Home Management,Therapeutic Exercises Modalities Biofeedback Next Visit Focus/Plan Next Note Type Treatment Note Next Visit Plan Begin EMG biofeedback for pelvic floor strength and endurance training
--- NOTE | 2024-01-20 11:22 | PT.OPPOC ---
Physical, Occupational & Speech Therapy At [facility] Current Diagnoses Muscle weakness (generalized) (01/20/24) Pelvic muscle wasting (01/20/24) Female genital prolapse, unspecified (01/20/24) Unspecified urinary incontinence (01/20/24) Personal history of other diseases of urinary system (01/20/24) Other specified postprocedural states (01/20/24) Visit Care Team Role Provider Type Malini Ruggiero MD Family Provider Physician Specialty: TOBACCO PRIMER MACHINE OPERATOR Address: [address] [place] [address], [id number] Email: [email or web address] TIA Atkins Attending Provider Advanced Mutual Fund Manager Primary Care Provider Referring Provider Specialty: Medical Address: [address] [place] [address] Email: [email or web address] Plan Of Care PT-OP-B Current Condition Start: 01/20/24 08:59 Freq: Status: Active Protocol: Document 01/20/24 09:00 [facility] (Rec: 01/20/24 09:30 [facility] [id number]) Current Condition History of Current Condition Onset Date 2018 Current Complaints urinary incontinence and at times fecal soilage History of Current Condition prolapse surgery [address] ruggiero and that time she was having bowel leakage and loose stool. She retired in 2019 and after she stopped working she sat more and this is when her symptoms increased . Over the last few years its been a pain in the neck as she has to have the mini pads or underwear wing pads. She never leaks at night laying down. She has a history of 2 kids later in life. She notes she didn't have this problem until the last decade. As soon as she is upright from bed she has to go to the bathroom and she has to try hard to make it to the bathroom and she notes urine just comes out at this time. Or if she sits too long when she gets up she has difficulty making it to the bathroom. She does 2 cups of coffee in the am and then no more. then 2-3 glasses of water per day. She doesn't have good control of the rectal sphincter and doesn't know when she has a accident. She swims for exercises senior classes 2 xms per week. One time this year she did feel a prolapse. PT-OP-T Assessment and Plan Start: 01/20/24 08:59 Freq: Status: Active Protocol: Document 01/20/24 09:00 [facility] (Rec: 01/22/24 11:05 [facility] [id number]) Physical Therapy Assessment Rehab Potential Rehabilitation Potential Good Evaluation Complexity Number of Personal Factors/Comorbidities 0 Number of Body Systems Impaired 1-2 Clinical Presentation at Evaluation Stable Impairments Impairments Activity Tolerance,Strength, Tone Other Impairments urinary leakage with urgency and that is worse after she has been sitting for a period of time Goals 3 Impairment Decreased pelvic floor endurance Short Term Goal (STG) Tonya is able to sustain a pelvic floor contraction in supine x 10 seconds STG Duration 5 weeks Contact Center Consultant Goal (LTG) Tonya is able to sustain a pelvic floor contraction in standing x 5 seconds LTG Duration 12 weeks 2 Impairment pelvic floor weakness Short Term Goal (STG) Tonya is educated on a pelvic floor strengthening and core strengthening program for home STG Duration 4 weeks Senior Care Goal (LTG) Tonya is able to improve the strength of the levator ani to 3/5 MMT for all lorenzo LTG Duration 12 weeks 1 Impairment urinary incontinence worse after she has been sitting for a period of time Short Term Goal (STG) Tonya is educated on pelvic floor bracing prior to standing STG Duration 3 weeks Contact Center Consultant Goal (LTG) Tonya reports a overall reduction in urinary leakage and is able to stand up from a chair without leakage LTG Duration 12 weeks Assessment Summary Assessment Tonya is a 73 year old female referred to PT for pelvic floor strengthening due to urinary incontinence. She has a history of anterior posterior repair in 2012. She reports her symptoms of urinary leakage have been slowly progressing over the past 10 years. She also describes fecal soiling and feels with loose stool she has difficulty controlling her bowels. Tonya reports since she has retired she has become much more sedentary and knows this contributes to her overall weakness. She is doing water exercise approx 2 times per week. Her leakage occurs primarily with a urge and after she has been sitting for a extended period of time . When she stands up from sitting she will feel a urge and is not able to make it to the bathroom on time. With examination today Tonya is weak throughout the abdominal wall and pelvic floor. She tests 1/5 for the anterior and left lorenzo of the levator ani and 2/5 MMT for posterior and right lorenzo. Her endurance to sustain a pelvic floor contraction is limited to a few seconds only. We discussed timed voiding today as Tonya reports she will sit at times longer than 3 hours reading and doing computer work. She was educated on getting up and moving at 2 hours and checking in on how her bladder feels at that time in standing. Tonya is a good candidate for PT and treatment will include pelvic floor strengthening, endurance training, core and hip stabilization exercises. Physical Therapy Plan Frequency and Duration Frequency of Treatment 1x/Week Duration of treatment (weeks) 12 Plan of Care Start Date 01/20/24 Plan of Care End Date 04/13/24 Therapeutic Interventions Therapeutic Interventions Home Exercise Program,Patient/ Caregiver Education,Self-Care/ Home Management,Therapeutic Exercises Modalities Biofeedback Next Visit Focus/Plan Next Note Type Treatment Note Next Visit Plan Begin EMG biofeedback for pelvic floor strength and endurance training Plan of Care Dates Plan of Care Start Date 01/20/24 Plan of Care End Date 04/13/24 Electronically Signed by: Lety Scanlon, PT 01/22/24 1122 If you are in agreement with this Plan of Care, please return a signed and dated copy. I have reviewed this Plan of Care and certify that the skilled therapy services above are required to meet the patient?s needs. Physician Signature Date Printed Name and Credentials Clinical Instructor Signature Printed Name and Credentials
--- NOTE | 2024-02-01 09:47 | PT.OTN ---
Current Diagnoses Muscle weakness (generalized) (02/01/24) Pelvic muscle wasting (02/01/24) Female genital prolapse, unspecified (02/01/24) Unspecified urinary incontinence (02/01/24) Personal history of other diseases of urinary system (02/01/24) Other specified postprocedural states (02/01/24) Physical Therapy Treatment Note PT-OP-A Visit Information Start: 01/20/24 08:59 Freq: Status: Active Protocol: Document 02/01/24 09:01 [facility] (Rec: 02/01/24 09:47 [facility] [id number]) Out-Patient Physical Therapy Visit Information Visit Information Visit Type Treatment Note Visit Start Time 09:00 Visit Stop Time 09:45 Visit Number 2 PT-OP-B Current Condition Start: 01/20/24 08:59 Freq: Status: Active Protocol: Document 01/20/24 09:00 [facility] (Rec: 01/20/24 09:30 [facility] [id number]) Current Condition History of Current Condition Onset Date 2018 Current Complaints urinary incontinence and at times fecal soilage History of Current Condition prolapse surgery [address] solo and that time she was having bowel leakeage and loose stool. She retired in 2019 and after she stopped working she sat more and this is when her symptoms increased . Over the last few years its been a pain in the neck as she has to have the mini pads or underware wing pads. She never leaks at night laying down. SHe has a history of 2 kids later in life. She notes she didn't have this problem until the last decade. As soon as she is upright from bed she has to go to the bathroom and she has to try hard to make it to the bathroom and she notes urine just comes out at this time. Or if she sits too long when she gets up she has difficulty making it to the bathroom. She does 2 cups of coffee in the am and then no more. then 2-3 glasses of water per day. She doesn't have good control of the rectal sphincter and doesn't know when she has a accident. She swims for exercises senior classes 2 xms per week. One time this year she did feel a prolapse. PT-OP-C Subjective Start: 01/20/24 08:59 Freq: Status: Active Protocol: Document 02/01/24 09:01 [facility] (Rec: 02/01/24 09:47 [facility] [id number]) OP-PT Subjective Patient Comments Patient Comments pt notes she has been inconsistent with her exercises but also has been traveling PT-OP-F Manual Assessment Start: 01/20/24 08:59 Freq: Status: Active Protocol: Document 01/20/24 09:00 [facility] (Rec: 01/22/24 11:05 [facility] [id number]) Manual Assessments Soft Tissue Assessment Soft Tissue Mobility Assessment decreased muscle tone in the abdominal wall, atrophy of the levator ani all lorenzo PT-OP-I Pelvic Floor Start: 01/20/24 08:59 Freq: Status: Active Protocol: Document 01/20/24 09:00 [facility] (Rec: 01/22/24 11:00 [facility] [id number]) Pelvic Floor Assessment Urine Pelvic Floor Surgery Yes: anterior posterior repain Urinary Symptoms Urge Sensation Other Urinary Symptoms pt reports leakage happens if she has been sitting for a period of time and then tries to stand she often will leak when then trying to make it to the bathroom and can leak through her underwear and pants Leakage Size Large Leakage Cause Urge Voiding Frequency 3-6 Nocturia 0 Urine Pad Type Panty Liner Pelvic Clock Pelvic Clock 12-3 Atrophy Pelvic Clock 3-6 Atrophy Pelvic Clock 6-9 Atrophy Pelvic Clock 9-12 Atrophy Contraction Ability Voluntary Contraction Weak Voluntary Relaxation Weak Manual Muscle Testing Left 1 Manual Muscle Testing Right 2 Manual Muscle Testing Anterior 1 Manual Muscle Testing Posterior 2 Muscle Endurance (Seconds) 4 Comments Pelvic Floor Comments poor recruitment of the left lateral wall of the levator ani 1/5 MMT, all other lorenzo 2 /5 MMT poor pelvic floor endurance PT-OP-M Strength Start: 01/22/24 11:00 Freq: Status: Active Protocol: Document 01/20/24 09:00 [facility] (Rec: 01/22/24 11:01 [facility] [id number]) Trunk Strength Trunk Manual Muscle Testing Flexion 2+ Poor+ Core Stabilization poor transverse abdominal stability with decreased ability to facilitate the transverse abdominal musculature PT-OP-Q Treatments Start: 01/20/24 08:59 Freq: Status: Active Protocol: Document 02/01/24 09:01 [facility] (Rec: 02/01/24 09:47 [facility] [id number]) Therapeutic Exercises Supine Exercises quick pelvic floor contractions Reps/Minutes x 10 reps pelvic floor 5 sec hold Supine Exercise Name isolations Reps/Minutes x 10 reps Comments average 5 max 10 pelvic floor long holds Supine Exercise Name ball was used as a assist Reps/Minutes 10 reps holding 10 seconds and relax x 10 Comments average 7.3 and 14.8 max Self-Care/Home Management Treatment Education Patient Education Home Exercise Program Other Education urge deference technique and bladder retraining PT-OP-T Assessment and Plan Start: 01/20/24 08:59 Freq: Status: Active Protocol: Document 02/01/24 09:01 [facility] (Rec: 02/01/24 09:47 [facility] [id number]) Physical Therapy Assessment Goals 3 Impairment Decreased pelvic floor endurance Short Term Goal (STG) Tonya is able to sustain a pelvic floor contraction in supine x 10 seconds STG Duration 5 weeks District Or District Office Director Goal (LTG) Tonya is able to sustain a pelvic floor contraction in standing x 5 seconds LTG Duration 12 weeks 2 Impairment pelvic floor weakness Short Term Goal (STG) Tonya is educated on a pelvic floor strenghtening and core strengthening program for home STG Duration 4 weeks Senior Living Goal (LTG) Tonya is able to improve the strength of the levator ani to 3/5 MMT for all lorenzo LTG Duration 12 weeks 1 Impairment urinary incontinence worse after she has been sitting for a period of time Short Term Goal (STG) Tonya is educated on pelvic floor bracing prior to standing STG Duration 3 weeks District Or District Office Director Goal (LTG) Tonya reports a overall reduction in urinary leakge and is able to stand up from a chair without leakage LTG Duration 12 weeks Assessment Summary Assessment Tonya was initiated on EMG biofeedback today and she did well with this. We used adductor assist for her and this helped initially and then she was able to isolate for 5 seconds on her own. Physical Therapy Plan Frequency and Duration Frequency of Treatment 1x/Week Duration of treatment (weeks) 12 Plan of Care Start Date 01/20/24 Plan of Care End Date 04/13/24 Next Visit Focus/Plan Next Note Type Treatment Note Next Visit Plan continue with EMG biofeedback and add in lateral hip strengthening exercises
--- NOTE | 2024-02-08 13:19 | PT.OTN ---
Current Diagnoses Muscle weakness (generalized) (02/08/24) Pelvic muscle wasting (02/08/24) Female genital prolapse, unspecified (02/08/24) Unspecified urinary incontinence (02/08/24) Personal history of other diseases of urinary system (02/08/24) Other specified postprocedural states (02/08/24) Physical Therapy Treatment Note PT-OP-A Visit Information Start: 01/20/24 08:59 Freq: Status: Active Protocol: Document 02/08/24 09:00 [facility] (Rec: 02/08/24 09:14 [facility] [id number]) Out-Patient Physical Therapy Visit Information Visit Information Visit Type Treatment Note Visit Start Time 09:01 Visit Stop Time 09:45 Visit Number 3 PT-OP-B Current Condition Start: 01/20/24 08:59 Freq: Status: Active Protocol: Document 01/20/24 09:00 [facility] (Rec: 01/20/24 09:30 [facility] [id number]) Current Condition History of Current Condition Onset Date 2018 Current Complaints urinary incontinence and at times fecal soilage History of Current Condition prolapse surgery [address] and that time she was having bowel leakeage and loose stool. She retired in 2019 and after she stopped working she sat more and this is when her symptoms increased . Over the last few years its been a pain in the neck as she has to have the mini pads or underware wing pads. She never leaks at night laying down. SHe has a history of 2 kids later in life. She notes she didn't have this problem until the last decade. As soon as she is upright from bed she has to go to the bathroom and she has to try hard to make it to the bathroom and she notes urine just comes out at this time. Or if she sits too long when she gets up she has difficulty making it to the bathroom. She does 2 cups of coffee in the am and then no more. then 2-3 glasses of water per day. She doesn't have good control of the rectal sphincter and doesn't know when she has a accident. She swims for exercises senior classes 2 xms per week. One time this year she did feel a prolapse. PT-OP-C Subjective Start: 01/20/24 08:59 Freq: Status: Active Protocol: Document 02/08/24 09:00 [facility] (Rec: 02/08/24 09:14 [facility] [id number]) OP-PT Subjective Patient Comments Patient Comments laying down and sitting up and getting out of the chair she has been trying to get her SHe has been doing buff muff leaking has not been bad and she has only had one time in this past week. It was after drinking a naa beer. Patient Reported Progress Improving PT-OP-F Manual Assessment Start: 01/20/24 08:59 Freq: Status: Active Protocol: Document 01/20/24 09:00 [facility] (Rec: 01/22/24 11:05 [facility] [id number]) Manual Assessments Soft Tissue Assessment Soft Tissue Mobility Assessment decreased muscle tone in the abdominal wall, atrophy of the levator ani all lorenzo PT-OP-I Pelvic Floor Start: 01/20/24 08:59 Freq: Status: Active Protocol: Document 01/20/24 09:00 [facility] (Rec: 01/22/24 11:00 [facility] [id number]) Pelvic Floor Assessment Urine Pelvic Floor Surgery Yes: anterior posterior repain Urinary Symptoms Urge Sensation Other Urinary Symptoms pt reports leakage happens if she has been sitting for a period of time and then tries to stand she often will leak when then trying to make it to the bathroom and can leak through her underwear and pants Leakage Size Large Leakage Cause Urge Voiding Frequency 3-6 Nocturia 0 Urine Pad Type Panty Liner Pelvic Clock Pelvic Clock 12-3 Atrophy Pelvic Clock 3-6 Atrophy Pelvic Clock 6-9 Atrophy Pelvic Clock 9-12 Atrophy Contraction Ability Voluntary Contraction Weak Voluntary Relaxation Weak Manual Muscle Testing Left 1 Manual Muscle Testing Right 2 Manual Muscle Testing Anterior 1 Manual Muscle Testing Posterior 2 Muscle Endurance (Seconds) 4 Comments Pelvic Floor Comments poor recruitment of the left lateral wall of the levator ani 1/5 MMT, all other lorenzo 2 /5 MMT poor pelvic floor endurance PT-OP-M Strength Start: 01/22/24 11:00 Freq: Status: Active Protocol: Document 01/20/24 09:00 [facility] (Rec: 01/22/24 11:01 [facility] [id number]) Trunk Strength Trunk Manual Muscle Testing Flexion 2+ Poor+ Core Stabilization poor transverse abdominal stability with decreased ability to facilitate the transverse abdominal musculature PT-OP-Q Treatments Start: 01/20/24 08:59 Freq: Status: Active Protocol: Document 02/08/24 09:00 [facility] (Rec: 02/08/24 09:43 [facility] [id number]) Therapeutic Exercises Supine Exercises hip abduction with theraband Equipment Used level 2 theraband Reps/Minutes x 20 reps quick pelvic floor contractions Reps/Minutes x 10 reps pelvic floor 5 sec hold Supine Exercise Name with ball squeeze Reps/Minutes x 10 reps Comments 13.3 and 19.9 max pelvic floor long holds Supine Exercise Name isolations Side bilateral Reps/Minutes 10 reps holding 10 seconds and relax x 10 Comments average 11.7 and max 18.5 Sitting Exercises sit-stand with pelvic floor engagement Reps/Minutes x 10 reps Self-Care/Home Management Treatment Education Patient Education Home Exercise Program Other Education review of urge deference technique and bladder retraining PT-OP-T Assessment and Plan Start: 01/20/24 08:59 Freq: Status: Active Protocol: Document 02/08/24 09:00 [facility] (Rec: 02/08/24 13:16 [facility] [id number]) Physical Therapy Assessment Assessment Summary Assessment Tonya demonstrated improvements of both her endurnace holds as well as max contraction today with EMG biofeedback. I added in hip ER in supine with TB and sit- stand with pelvic floor contraction and Tonya tolerated this well Physical Therapy Plan Frequency and Duration Frequency of Treatment 1x/Week Duration of treatment (weeks) 12 Plan of Care Start Date 01/20/24 Plan of Care End Date 04/13/24 Therapeutic Interventions Therapeutic Interventions Home Exercise Program,Patient/ Caregiver Education,Self-Care/ Home Management,Therapeutic Exercises Modalities Biofeedback Next Visit Focus/Plan Next Note Type Treatment Note Next Visit Plan continue progressing pelvic floor and hip strength utilizing EMG biofeedback
--- NOTE | 2024-02-15 16:00 | PT.OTN ---
Current Diagnoses Muscle weakness (generalized) (02/15/24) Pelvic muscle wasting (02/15/24) Female genital prolapse, unspecified (02/15/24) Unspecified urinary incontinence (02/15/24) Personal history of other diseases of urinary system (02/15/24) Other specified postprocedural states (02/15/24) Physical Therapy Treatment Note PT-OP-A Visit Information Start: 01/20/24 08:59 Freq: Status: Active Protocol: Document 02/15/24 09:02 [facility] (Rec: 02/15/24 09:44 [facility] [id number]) Out-Patient Physical Therapy Visit Information Visit Information Visit Type Treatment Note Visit Start Time 09:01 Visit Stop Time 09:45 Visit Number 4 PT-OP-B Current Condition Start: 01/20/24 08:59 Freq: Status: Active Protocol: Document 01/20/24 09:00 [facility] (Rec: 01/20/24 09:30 [facility] [id number]) Current Condition History of Current Condition Onset Date 2018 Current Complaints urinary incontinence and at times fecal soilage History of Current Condition prolapse surgery [address] and that time she was having bowel leakeage and loose stool. She retired in 2019 and after she stopped working she sat more and this is when her symptoms increased . Over the last few years its been a pain in the neck as she has to have the mini pads or underware wing pads. She never leaks at night laying down. SHe has a history of 2 kids later in life. She notes she didn't have this problem until the last decade. As soon as she is upright from bed she has to go to the bathroom and she has to try hard to make it to the bathroom and she notes urine just comes out at this time. Or if she sits too long when she gets up she has difficulty making it to the bathroom. She does 2 cups of coffee in the am and then no more. then 2-3 glasses of water per day. She doesn't have good control of the rectal sphincter and doesn't know when she has a accident. She swims for exercises senior classes 2 xms per week. One time this year she did feel a prolapse. PT-OP-C Subjective Start: 01/20/24 08:59 Freq: Status: Active Protocol: Document 02/15/24 09:02 [facility] (Rec: 02/15/24 09:44 [facility] [id number]) OP-PT Subjective Patient Comments Patient Comments no accidents this last week only had one cordero to the bathroom. PT-OP-F Manual Assessment Start: 01/20/24 08:59 Freq: Status: Active Protocol: Document 01/20/24 09:00 [facility] (Rec: 01/22/24 11:05 [facility] [id number]) Manual Assessments Soft Tissue Assessment Soft Tissue Mobility Assessment decreased muscle tone in the abdominal wall, atrophy of the levator ani all lorenzo PT-OP-I Pelvic Floor Start: 01/20/24 08:59 Freq: Status: Active Protocol: Document 01/20/24 09:00 [facility] (Rec: 01/22/24 11:00 [facility] [id number]) Pelvic Floor Assessment Urine Pelvic Floor Surgery Yes: anterior posterior repain Urinary Symptoms Urge Sensation Other Urinary Symptoms pt reports leakage happens if she has been sitting for a period of time and then tries to stand she often will leak when then trying to make it to the bathroom and can leak through her underwear and pants Leakage Size Large Leakage Cause Urge Voiding Frequency 3-6 Nocturia 0 Urine Pad Type Panty Liner Pelvic Clock Pelvic Clock 12-3 Atrophy Pelvic Clock 3-6 Atrophy Pelvic Clock 6-9 Atrophy Pelvic Clock 9-12 Atrophy Contraction Ability Voluntary Contraction Weak Voluntary Relaxation Weak Manual Muscle Testing Left 1 Manual Muscle Testing Right 2 Manual Muscle Testing Anterior 1 Manual Muscle Testing Posterior 2 Muscle Endurance (Seconds) 4 Comments Pelvic Floor Comments poor recruitment of the left lateral wall of the levator ani 1/5 MMT, all other lorenzo 2 /5 MMT poor pelvic floor endurance PT-OP-M Strength Start: 01/22/24 11:00 Freq: Status: Active Protocol: Document 01/20/24 09:00 [facility] (Rec: 01/22/24 11:01 [facility] [id number]) Trunk Strength Trunk Manual Muscle Testing Flexion 2+ Poor+ Core Stabilization poor transverse abdominal stability with decreased ability to facilitate the transverse abdominal musculature PT-OP-Q Treatments Start: 01/20/24 08:59 Freq: Status: Active Protocol: Document 02/15/24 09:02 [facility] (Rec: 02/15/24 09:44 [facility] [id number]) Therapeutic Exercises Supine Exercises hip abduction with theraband Equipment Used level 2 theraband Reps/Minutes x 20 reps quick pelvic floor contractions Reps/Minutes x 10 reps pelvic floor 5 sec hold Supine Exercise Name held for 10 seconds Reps/Minutes x 10 pelvic floor long holds Supine Exercise Name isolations Reps/Minutes 10 reps holding 10 seconds and relax x 10 Comments 8.8 and 15.6 uv max PT-OP-T Assessment and Plan Start: 01/20/24 08:59 Freq: Status: Active Protocol: Document 02/15/24 09:02 [facility] (Rec: 02/15/24 09:44 [facility] [id number]) Physical Therapy Assessment Goals 3 Impairment Decreased pelvic floor endurance Short Term Goal (STG) Tonya is able to sustain a pelvic floor contraction in supine x 10 seconds goal met STG Duration 5 weeks Jail Goal (LTG) Tonya is able to sustain a pelvic floor contraction in standing x 5 seconds good progress LTG Duration 12 weeks 2 Impairment pelvic floor weakness Short Term Goal (STG) Tonya is educated on a pelvic floor strenghtening and core strengthening program for home goal met STG Duration 4 weeks Gastroenterologist Goal (LTG) Tonya is able to improve the strength of the levator ani to 3/5 MMT for all lorenzo goal met LTG Duration 12 weeks 1 Impairment urinary incontinence worse after she has been sitting for a period of time Short Term Goal (STG) Tonya is educated on pelvic floor bracing prior to standing goal met STG Duration 3 weeks Gastroenterologist Goal (LTG) Tonya reports a overall reduction in urinary leakge and is able to stand up from a chair without leakage goal met LTG Duration 12 weeks Assessment Summary Assessment Tonya is showing good awareness of her exercise program. She is feeling the exercises are helping her and she is noting decreased urinary leakage. At this time she will be DC to a [facility] Physical Therapy Plan Discharge Physical Therapy Discharge Reasons Goals Met
== END 2024-03-09 09:56 | disposition home or self-care (01) ==
LOC: PHYS 09:00
PROVIDERS: Family Provider Specialist; PCP Registered Nurse Diabetes Educator; Referring Provider Registered Nurse Diabetes Educator; Visit Provider Registered Nurse Diabetes Educator
DX: Z98.890 Other specified postprocedural states (principal); Z87.448 Personal history of other diseases of urinary system; R32 Unspecified urinary incontinence; N81.9 Female genital prolapse, unspecified; N81.84 Pelvic muscle wasting; M62.81 Muscle weakness (generalized)
CPT/HCPCS: 97110; 97161; 97535

== ENCOUNTER → 2024-05-23 08:44 | Outpatient (CLI) | payer MEDICARE, SELFPAY ==
[2019-01-02 19:51] VITALS: BMI 29.0
[2024-05-23 10:15] LABS: Hemoglobin A1C% w Est Avg Glu 5.3 % (4.0-6.0)
[2024-05-23 10:23] LABS: Alanine Aminotransferase 18 IU/L (<35); Albumin 4.3 g/dL (3.5-5.0); Albumin Globulin Ratio 1.5 (1.0-2.8); Alkaline Phosphatase 90 U/L (38-126); Aspartate Aminotransferase 20 IU/L (14-36); BUN Creatinine Ratio 19.6 (6-22); Bilirubin Total 0.8 mg/dL (0.2-1.3); Blood Urea Nitrogen 18 mg/dL (7-17); Calcium 9.7 mg/dL (8.4-10.2); Carbon Dioxide 27 mmol/L (22-32); Chloride 105 mmol/L (98-107); Cholesterol 274 mg/dL (140-199); Estimated Glomerular Filt Rate > 60 mL/min (>60); Globulin 2.9 g/dL (1.7-4.1); Glucose 95 mg/dL (80-110); HDL Cholesterol 45 mg/dL (40-60); HEMOLYSIS < 15 (0-50); LDL Cholesterol Calculated 188 mg/dL (<100); Potassium 4.7 mmol/L (3.4-5.1); Sodium 140 mmol/L (137-145); Total Protein 7.2 g/dL (6.3-8.2); Triglycerides 207 mg/dL (35-150)
[2024-05-23 10:42] LABS: TSH w/ Reflex to FT4 0.22 uIU/mL (0.47-4.68)
[2024-05-23 12:43] LABS: Free T4, Direct Thyroxine 1.71 ng/dL (0.78-2.19)
== END ==
LOC: LAB 08:45
PROVIDERS: Family Provider Specialist; PCP Registered Nurse Diabetes Educator; Referring Provider Registered Nurse Diabetes Educator; Visit Provider Registered Nurse Diabetes Educator
DX: R73.01 Impaired fasting glucose (principal); E03.9 Hypothyroidism, unspecified; E78.5 Hyperlipidemia, unspecified
CPT/HCPCS: 36415; 80053; 80061; 83036; 84439; 84443

== ENCOUNTER → 2024-06-12 10:00 | Outpatient (CLI) | payer MEDICARE, SELFPAY ==
[2019-01-02 19:51] VITALS: BMI 29.0
[2024-06-12 11:35] LABS: TSH w/ Reflex to FT4 0.57 uIU/mL (0.47-4.68)
== END ==
PROVIDERS: Family Provider Specialist; PCP Registered Nurse Diabetes Educator; Referring Provider Registered Nurse Diabetes Educator; Visit Provider Registered Nurse Diabetes Educator
DX: E03.9 Hypothyroidism, unspecified (principal)
CPT/HCPCS: 36415; 84443

== ENCOUNTER 2024-06-26 08:52 | Day surgery (SDC) | payer MEDICARE, SELFPAY ==
[2019-01-02 19:51] VITALS: BMI 29.0
[2024-06-26 09:28] VITALS: BP 138/84; PULSE 95; RESP 16; TEMP 36.7; O2SAT 99; BMI 25.9
[2024-06-26] MEDS: LACTATED RINGERS 1,000 ML 100 ML IV (09:35)
--- NOTE | 2024-06-26 09:36 | P.HP_ITS ---
History of Present Illness History of Present Illness Date Patient Seen: 06/26/24 Chief complaint: SDC Narrative: Need for follow-up screening colonoscopy. To previous ones 10 years apart were negative [facility] Medical History (Updated 06/02/24 @ 10:04 by TIA Atkins) History of skin cancer Essential hypertension Greater trochanteric bursitis of left hip Vision disorder Hip pain (~2017) Herpes (~1986) Fecal incontinence (~2018) Skin cancer (~2002) Hypothyroidism Impaired fasting blood sugar Dyslipidemia Hypothyroid Urinary incontinence concurrent with and due to female genital prolapse (~2018) Cystocele and rectocele with incomplete uterovaginal prolapse H/O fracture of ankle Surgical History Anesthesia Status post Mohs surgery History of colonoscopy History of foot surgery (~2007) History of bladder suspension procedure (~12/2018) S/P repair of PDA Status post delivery (~1986) Family History Brother Age: 78 Diabetes mellitus Hypertension Brother Age: 74 Hypertension Ulcer Mother Diabetes mellitus High cholesterol Mental health problem Arthritis History of heart disease Hyperlipidemia Sister Age: 63 High cholesterol Diabetes mellitus Father History of emphysema Brother Prostate disease Social History household members: none Smoking Status: Never smoker alcohol intake: current Meds Home Medications and Allergies Home Medications Medication Instructions Recorded Confirmed Type cholecalciferol (vitamin D3) 250 250 mcg PO DAILY 11/23/23 05/30/24 History mcg (10,000 unit) capsule vitamin K2 90 mcg capsule 90 mcg PO DAILY 04/18/24 05/30/24 History sodium,potassium,mag sulfates 17.5 See Rx Instructions PO .COMPLEX 05/31/24 Rx gram-3.13 gram-1.6 gram oral soln #354 mL (Suprep Bowel Prep Kit) levothyroxine 100 mcg tablet 100 mcg PO DAILY #90 tabs 06/18/24 06/26/24 Rx Allergies Allergy/AdvReac Type Severity Reaction Status Date / Time erythromycin base Allergy Unknown Verified 06/26/24 09:12 Exam Vital Signs (past 8 hours): - 06/26/24 09:28 Temperature 98.1 F Pulse Rate 95 H Respiratory Rate 16 Blood Pressure 138/84 Pulse Oximetry 99 Oxygen Delivery Method Room Air Oxygen Delivery Method Room Air Narrative Exam Narrative: Oropharynx free of lesions Chest clear to auscultation percussion Cardiac exam reveals no S3 or murmur Assessment & Plan Assessment & Plan narrative: Need for follow-up screening colonoscopy. Risks, benefits, alternatives have been explained. Time-Based Coding :: [TOTAL MINUTES] spent with patient and on the chart (including review of chart, obtaining history, exam, reviewing outside data, placing orders, documenting exam and treatment plan, and counseling patient) on [DATE]. [employer]ctor Document charge(s): No
--- NOTE | 2024-06-26 09:37 | PM.OP.COLON ---
Operative Date/Time/Diagnoses Date of procedure: 06/26/24 Pre-op diagnosis: See indication and findings Procedure & Clinicians Study performed: Colonoscopy Same procedure as scheduled: Yes Indications: Follow-up screening last 2 colonoscopy negative Surgeon: Max Modi Procedure Notes Procedure in detail: After informed consent was obtained the patient was placed in left lateral decubitus position. The video colonoscope was introduced the rectum slowly advanced cecum. Preparation was good. On slow withdrawal mucosa was carefully examined. The scope was removed. The patient tolerated procedure well Blood loss none Complications none Sedation mac Findings 1. Extensive left-sided diverticulosis 2. Otherwise negative colonoscopy to cecum This might be patient's last colonoscopy however if in excellent health might consider repeating in 7-10 years as the last colonoscopy
[2024-06-26 10:16] VITALS: BP 98/77; PULSE 95; RESP 10; TEMP 36.1; O2SAT 94
[2024-06-26 10:21] VITALS: BP 110/71; PULSE 85; RESP 10; O2SAT 92
[2024-06-26 10:26] VITALS: BP 98/69; PULSE 76; RESP 16; TEMP 36.3; O2SAT 98
[2024-06-26 10:39] VITALS: BP 113/77; PULSE 66; RESP 14; TEMP 36.3; O2SAT 98
== END 2024-06-26 10:52 | disposition home or self-care (01) ==
PROVIDERS: Family Provider Specialist; PCP Registered Nurse Diabetes Educator; Referring Provider Internal Medicine Gastroenterology; Visit Provider Internal Medicine Gastroenterology
PROC: 0DJD8ZZ Inspection of Lower Intestinal Tract, Via Natural or Artificial Opening Endoscopic (ICD-10-PCS; CPT 45378; principal; 2024-06-26 10:00)
DX: Z12.11 Encounter for screening for malignant neoplasm of colon (principal); K57.30 Diverticulosis of large intestine without perforation or abscess without bleeding
CPT/HCPCS: G0121; J2704

== ENCOUNTER 2024-10-22 14:52 | Emergency (ER) | payer MEDICARE, SELFPAY ==
[2019-01-02 19:51] VITALS: BMI 29.0
[2024-10-22] VITALS (11 sets, daily range): BP systolic 122–163; BP diastolic 65–85; PULSE 69–102; RESP 20–40; TEMP 36.6; O2SAT 96–99; BMI 25.9
--- NOTE | 2024-10-22 15:21 | ED.GENADULT ---
HPI - General Adult General Chief complaint: Chest Pain Stated complaint: R Rib/Back Pain, Want vitals checked Time Seen by Provider: 10/22/24 15:12 History of Present Illness HPI narrative: 73-year-old woman with a history of hypothyroidism who was visiting was [facility] last week had some abdominal pain and underwent emergent AAA endovascular repair on October 14 and [facility]. She has recovered nicely. She drove home from [facility] 2 days ago, approximately 12 hours in the car. Pain has been doing well postoperatively until last night when she developed some right posterior rib pain, felt that she was a little bit dyspneic, no leg pain or fevers. Her postoperative symptoms are stable in not worsening. She is concerned that she may have a blood clot and I to share that concern. She is slightly dyspneic when talking tachycardic and multiple risk factors for PE Related Data Home Medications ?Medication ?Instructions ?Recorded ?Confirmed cholecalciferol (vitamin D3) 250 250 mcg PO DAILY 11/23/23 05/30/24 mcg (10,000 unit) capsule vitamin K2 90 mcg capsule 90 mcg PO DAILY 04/18/24 05/30/24 Previous Rx's ?Medication ?Instructions ?Recorded sodium,potassium,mag sulfates 17.5 See Rx Instructions PO .COMPLEX 05/31/24 gram-3.13 gram-1.6 gram oral soln #354 mL (Suprep Bowel Prep Kit) levothyroxine 100 mcg tablet 100 mcg PO DAILY #90 tabs 06/18/24 Allergies Allergy/AdvReac Type Severity Reaction Status Date / Time erythromycin base Allergy Unknown Verified 06/26/24 09:12 Review of Systems Review of Systems Narrative: Pertinent positive and negative findings as per HPI Patient History Medical History (Updated 10/22/24 @ 18:13 by Elisha Lacy MD) History of skin cancer Essential hypertension Greater trochanteric bursitis of left hip Vision disorder Hip pain (~2017) Herpes (~1986) Fecal incontinence (~2018) Skin cancer (~2002) Hypothyroidism Impaired fasting blood sugar Dyslipidemia Hypothyroid Urinary incontinence concurrent with and due to female genital prolapse (~2018) Cystocele and rectocele with incomplete uterovaginal prolapse H/O fracture of ankle Surgical History (Updated 10/22/24 @ 18:13 by Elisha Lacy MD) Anesthesia Status post Mohs surgery History of colonoscopy History of foot surgery (~2007) History of bladder suspension procedure (~12/2018) S/P repair of PDA Status post delivery (~1986) Family History Brother Age: 78 Diabetes mellitus Hypertension Brother Age: 74 Hypertension Ulcer Mother Diabetes mellitus High cholesterol Mental health problem Arthritis History of heart disease Hyperlipidemia Sister Age: 63 High cholesterol Diabetes mellitus Father History of emphysema Brother Prostate disease Social History household members: none alcohol intake: current alcohol intake frequency: holidays/special occasions only Exam Initial Vital Signs Initial Vital Signs: General: in no acute distress. Able to give a complete and coherent history, slightly dyspneic while talking HEENT: Moist mucous membranes, normal sclera with reactive pupils, Respiratory: Lungs are clear to auscultation, no wheezing no rales no rhonchi. Full and symmetrical air movement, Cardiac: Regular rate and rhythm no murmurs no bruits Abdomen: Soft, nontender, no rebound or guarding, no flank pain Skin: Warm and dry, no rashes Neurologic: Grossly neurologically intact with no obvious asymmetries or abnormalities Extremities: No trauma, well perfused Psych: Cooperative, appropriate insight and affect Course Orders Ordered: ED Orders 10/22/24 15:20 CT angio chest abdomen pelvis Stat Complete Blood Count AUTO DIFF Stat Comprehensive Metabolic Panel Stat Medical Decision Making Imaging Data CT angio chest abdomen and pelvis: Radiologist's Impression: PROCEDURE: CT ANGIO CHEST ABDOMEN PELVIS INDICATIONS: Concern for PE right lung, endovascular AAA repair 7 days ag TECHNIQUE: Precontrast 5 mm thick sections acquired from the lung apices to the iliac crests. After the administration of intravenous contrast, 2.5 mm thick sections again acquired from the lung apices to the iliac crests. Maximum intensity projection (MIP) oblique sagittal and coronal reformats were then acquired. For radiation dose reduction, the following was used: automated exposure control. COMPARISON: None. FINDINGS: Image quality: Diagnostic. AORTA: No aortic aneurysm. No acute aortic syndrome. No extravasation of contrast. Infrarenal aortic abdominal aneurysm stent with iliac branching traversing a 7.6 cm aneurysmal fusiform sac. There is mild hyperenhancement of the lumen surrounding the stent with increased lucency of the mural wall, both unchanged when compared to the precontrast sequence. The celiac and SMA are well opacified. The [place] is non-opacified. Adjacent to the infrarenal abdominal aortic aneurysm there is a indeterminate density soft tissue mass that sits between the IVC and the aorta measuring 6.8 x 4 by 7 cm. No pulmonary emboli. CHEST: Lower Neck: No enlarged lymph nodes. Thyroid: No thyroid nodules which require sonographic evaluation. Axillae: No enlarged lymph nodes. Chest Wall: Unremarkable. Lungs and Pleura: No pneumothorax or pleural effusions. No consolidation or suspicious nodules. Heart: Heart size is normal. No pericardial effusion. Thoracic Vessels: Pulmonary arteries demonstrate normal size. Mediastinum and Yuli: No enlarged lymph nodes. Esophagus: No wall thickening. No hiatal hernia. ABDOMEN: Liver: No solid mass. Gallbladder: No radiopaque gallstones or wall thickening. Biliary ducts: No biliary dilation. Pancreas: No ductal dilation. Spleen: Size is within normal limits. Adrenal Glands: No adrenal nodules. Kidneys and Ureters: No hydronephrosis. No solid mass. No complex renal cystic lesion which requires follow up. Stomach and Bowel: Normal colonic caliber, without significant wall thickening. Normal appendix. Scattered colonic diverticula. Peritoneum: No abnormal intraperitoneal fluid. No free air. Ventral Wall: No hernia. Abdominal Nodes: No retroperitoneal or mesenteric adenopathy by size criteria. Vessels: Inferior vena cava is normal in size. PELVIS: Pelvic Organs: Unremarkable. Bladder: Unremarkable. Pelvic Nodes: No enlarged lymph nodes. Miscellaneous: No inguinal hernias are seen. Bones: No concerning osseous lesions. Spondylitic changes most prominent at L2-L3.. IMPRESSION: 1. No aortic dissection. 2. Postsurgical changes of the infrarenal abdominal aortic aneurysm with stent placement without extravasation of contrast. 3. Indeterminate density nonenhancing mass anterior to the great vessels between the aorta and vena cava. Differential includes solid mass however loculated postsurgical fluid collection such as proteinaceous seroma or hematoma could have a similar appearance. Correlate with pre-surgical imaging. Dictated by: Rubio Gracia M.D. on 10/22/2024 at 15:12 MDM Narrative Medical decision making narrative: CC: Right posterior thoracic pain mild dyspnea Complicating co-morbidities: Emergent Endovascular AAA repair 7 days ago in [facility]. Hypothyroidism Data collected from: patient Differential considered: Pulmonary embolism, pneumonia, pneumothorax, retroperitoneal pain or issues with the endovascular site Exam documented above, pertinent findings include: Mild dyspnea, tachycardia otherwise exam is benign Lab Test results independently reviewed as above. Pertinent findings: CBC is reassuring hemoglobin is 10.2 and 29.8. Chemistries show no significant abnormalities with normal creatinine Troponin is undetected Imaging studies independently reviewed: Indeterminate density nonenhancing mass anterior to the great vessels between the aorta and vena cava. Differential includes solid mass however loculated postsurgical fluid collection such as proteinaceous seroma or hematoma could have a similar appearance. Correlate with pre-surgical imaging. Consultations: Discussion with DR Gaona, vascular surgeon with [facility] in [facility]. On-call for patient's original surgeon, . In discussing the CT scans and his review of her CT scans with the initial complaint, she apparently had a retroperitoneal AAA rupture with blood appreciated in the same area prior to endovascular repair. He believes that is the same. There is no sign of infection or other concerns. He felt that discharge home would be safe in follow up as scheduled Treatments: Dilaudid Re-evaluations: 520pm Patient is updated. She was told she needed to follow up with a vascular surgeon once she got back to [facility]. Recommendation was to schedule a follow up appointment, get a CT scan to make sure everything was healing nicely. She does not have a primary care physician locally, she has not seen medical providers in [facility]. Will send CT scans to [facility] and talk to vascular surgery to see if there is reason for immediate concern with the findings on the CT scan or if outpatient follow up later this week would be appropriate. Patient remains hemodynamically stable. Discussion: 73-year-old woman who had a retroperitoneal rupture of an unknown abdominal aneurysm 8 days ago with endovascular repair in [facility] where she was visiting for a wedding. She is doing well began developing right posterior thoracic pain comes in for further evaluation. CT scan suggests retroperitoneal abnormality. In review with thoracic surgeon he suspects that that is in fact the original blood with the original rupture that is still needs to be reabsorbed. He was quite reassured and did not feel that further workup was required. Findings reviewed with the patient. We discussed pain control. So far she has actually done quite well with just Tylenol. We will send her home with a couple of Percocet should you wake up with significant pain over the next couple of days as this extravasated blood is reabsorbed. She is safe for discharge Discharge Plan Departure Patient Disposition: Home Clinical Impression: Back pain, thoracic, S/P AAA repair Activity Restrictions/Additional Instructions: Thank you for coming into I had a very nice conversation with Dr. Jimenez ibarra who is [address] of [address] partners of Dr Sanchez. Together we reviewed the CT scans that you had done in [place] and the 1 we did today. The finding on the CT scan today is the original blood that was leaking out from your original aneurysm rupture. Because the repair was done through the inside of your blood vessels, that blood that had already leaked out we will need to be reabsorbed by your body. Blood interbodies that is outside of blood vessels is often slightly irritating which is the pain that you are experiencing. Your body will break this up, that blood we will be absorbed and you can go on to celebrate your very vaishali recovery from a ruptured abdominal aneurysm You can continue to use Tylenol for pain. I have given you a couple of tablets of Percocet if you do need them. This is a narcotic and will cause constipation so please take them with a stool softener if you do use them If you find that you are getting worse or develop any new symptoms, please feel free to return to the emergency department for further evaluation. Prescriptions: No Action sodium,potassium,mag sulfates [Suprep Bowel Prep Kit] 17.5-3.13-1.6 gram recon soln See Rx Instructions PO .COMPLEX Qty: 354 0RF Rx Instructions: take as directed by Physician levothyroxine 100 mcg tablet 100 mcg PO DAILY Qty: 90 3RF cholecalciferol (vitamin D3) 250 mcg (10,000 unit) capsule 250 mcg PO DAILY vitamin K2 90 mcg capsule 90 mcg PO DAILY Referrals: Christiano Chavez ARNP [Primary Care Provider, Medical] Stand Alone Forms: Patient Portal/API
[2024-10-22 15:46] LABS: Add Manual Diff / Slide Review NO; Hematocrit 29.8 % (36-46); Hemoglobin 10.2 g/dL (12.0-16.0); Lymphocytes Absolute Auto 1900 /uL (1100-4500); Mean Corpuscular HGB Conc 34.3 % (30-36); Mean Corpuscular Hemoglobin 30.3 PG (26-34); Mean Corpuscular Volume 88.2 fL (80-100); Platelet Count 385 X10^3/uL (150-400)
[2024-10-22 16:06] LABS: Alanine Aminotransferase 46 IU/L (<35); Albumin 3.6 g/dL (3.5-5.0); Albumin Globulin Ratio 1.2 (1.0-2.8); Alkaline Phosphatase 108 U/L (38-126); Blood Urea Nitrogen 18 mg/dL (7-17); Calcium 8.7 mg/dL (8.4-10.2); Carbon Dioxide 25 mmol/L (22-32); Chloride 105 mmol/L (98-107); Estimated Glomerular Filt Rate > 60 mL/min (>60); Globulin 3.1 g/dL (1.7-4.1); Glucose 146 mg/dL (70-99); HEMOLYSIS < 15 (0-50); Potassium 4.0 mmol/L (3.4-5.1); Sodium 137 mmol/L (137-145); Total Protein 6.7 g/dL (6.3-8.2)
[2024-10-22 16:18] LABS: Troponin I < 0.012 ng/mL (0.01-0.034)
[2024-10-22] MEDS: OXYCODONE/APAP 5/325 PREPACK 1 BOTTLE MISC (18:24)
== END 2024-10-22 18:28 | disposition home or self-care (01) ==
PROVIDERS: Emergency Provider Emergency Medicine; Family Provider Specialist; PCP Registered Nurse Diabetes Educator
DX: R07.81 Pleurodynia (principal); M54.6 Pain in thoracic spine; R00.0 Tachycardia, unspecified; Z86.79 Personal history of other diseases of the circulatory system; Z98.890 Other specified postprocedural states
CPT/HCPCS: 36415; 71275; 74174; 80053; 84484; 85025; 86850; 86900; 86901; 96374; 99284; J1171; Q9967

== ENCOUNTER → 2025-01-09 10:57 | Outpatient (CLI) | payer MEDICARE, SELFPAY ==
[2024-12-20 16:05] VITALS: BMI 29.0
[2025-01-09 12:22] LABS: Appearance Urine UA CLEAR; Bilirubin Urine UA NEGATIVE (NEGATIVE); Color Urine UA YELLOW; Glucose Urine UA NEGATIVE (Negative); Ketones Urine UA TRACE (NEGATIVE); Leukocyte Esterase Urine UA NEGATIVE (NEGATIVE); Nitrite Urine UA NEGATIVE (Negative); Occult Blood Urine UA NEGATIVE (Negative); Protein Urine UA NEGATIVE (Negative); Specific Gravity Urine UA >=1.030 (1.000-1.035); Urobilinogen Urine UA 0.2 E.U./dL (0.2)
[2025-01-09 12:30] LABS: pH Urine UA 5.5 (4.5-8.0)
[2025-01-09 12:31] LABS: Culture Indicated Urine Cult Not Indicated
== END ==
PROVIDERS: PCP Registered Nurse Diabetes Educator; Visit Provider Obstetrics & Gynecology Gynecology
DX: N81.11 Cystocele, midline (principal); Z98.890 Other specified postprocedural states; N39.41 Urge incontinence; N81.4 Uterovaginal prolapse, unspecified; N81.6 Rectocele
CPT/HCPCS: 81001